=== PATIENT | female | born 1930 | race Asian ===

== ENCOUNTER 2018-09-13 11:09 | Inpatient (IN) | payer OTHER, MEDICAID ==
[~2018-09-13] VITALS: Ht 152.4 cm; Wt 53.5 kg
[2018-09-13 11:15] VITALS: BP_SYST 103
[2018-09-13] MEDS ORDERED: IPRATROPIUM/ALBUTEROL SULFATE 3 ML AMPUL.NEB (DUONEB) INH ONE (11:45)
[2018-09-13] MEDS ORDERED: IPRATROPIUM BROM 0.5 MG/2.5 ML VIAL.NEB (ATROVENT) INH ONE (11:45)
[2018-09-13 12:06] LABS: BASOPHILS % (AUTO) 0.1 % (0.0-2.0); EOSINOPHILS % (AUTO) 0.7 % (0.0-4.0); HEMATOCRIT 32.5 % (36-48); HEMOGLOBIN 10.5 g/dL (12.0-16.0); LYMPHOCYTES # (AUTO) 1.9 K/uL (1.0-5.5); MEAN CORPUSCULAR HEMOGLOBIN 29 pg (27-31); MEAN CORPUSCULAR HGB CONC 32 % (32-36); MEAN CORPUSCULAR VOLUME 91 fL (79.0-98.0); MONOCYTES # (AUTO) 0.4 K/uL (0.0-1.0); MONOCYTES % (AUTO) 8.9 % (1.7-9.3); NEUTROPHILS # (AUTO) 2.7 K/uL (1.8-7.7); NEUTROPHILS % (AUTO) 53.3 % (40.0-70.0); PLATELET COUNT (AUTO) 250 K/uL (130-430); RED BLOOD CELL COUNT(AUTO) 3.56 MIL/uL (4.2-6.2); RED CELL DISTRIBUTION WIDTH 14.7 % (9.0-15.0)
[2018-09-13 12:14] LABS: ANION GAP 6 (5-15); CHLORIDE 101 mmol/L (98-107); GLUCOSE 232 mg/dL (70-99); POTASSIUM 4.1 mmol/L (3.5-5.1); SODIUM SERUM 138 mmol/L (136-145); UREA NITROGEN, BLOOD 18 mg/dL (8-21)
[2018-09-13 12:18] LABS: INR 0.9 (0.8-1.2); PROTHROMBIN TIME 9.5 SECS (9.5-12.5)
[2018-09-13 12:20] LABS: ALANINE AMINOTRANSFERASE 15 U/L (12-78); ALBUMIN 3.1 g/dL (3.4-4.8); ASPARTATE AMINOTRANSFERASE 13 U/L (10-37); TOTAL BILIRUBIN 0.3 mg/dL (0.0-1.0)
[2018-09-13 12:39] LABS: BILIRUBIN,URINE NEGATIVE (NEGATIVE); BLOOD, URINE NEGATIVE (NEGATIVE); CLARITY/URINE SL HAZY (CLEAR); COLOR,URINE YELLOW (YELLOW); GLUCOSE,URINE NEGATIVE (NEGATIVE); KETONES,URINE TRACE (NEGATIVE); LEUKOCYTE ESTERASE ,URINE NEGATIVE (NEGATIVE); NITRITE, URINE NEGATIVE (NEGATIVE); PH,URINE 5.5 (5.0-8.0); PROTEIN URINE TRACE (NEGATIVE); UROBILINOGEN,URINE 0.2 (0.2-1.0)
[2018-09-13 12:46] LABS: BACTERIA,URINE MODERATE /HPF (None Seen); RBC,URINE 0-3 /HPF (0-3); WBC,URINE 0-3 /HPF (0-3)
[2018-09-13 12:47] LABS: MUCUS,URINE 1+ /LPF (None Seen)
[2018-09-13] MEDS ORDERED: PRAV20TA PO (12:49)
[2018-09-13] MEDS ORDERED: STA120 PO (12:49)
[2018-09-13] MEDS ORDERED: DONE10TA44 PO (12:49)
[2018-09-13] MEDS ORDERED: ALEN10TA6 PO (12:49)
[2018-09-13] MEDS ORDERED: LOSA50TA3 PO (12:49)
[2018-09-13] MEDS ORDERED: GLUXR500 PO (12:49)
[2018-09-13] MEDS ORDERED: AMLO5TAB4 PO (12:49)
[2018-09-13] MEDS ORDERED: IOHEXOL 100 ML IV ONE (13:29)
[2018-09-13 17:20] VITALS: BP_SYST 103; BP_SYST 130
[2018-09-13] MEDS ORDERED: ALBUTEROL SULFATE 0.083% 2.5 MG/3 ML VIAL.NEB INH SCH (17:45)
[2018-09-13] MEDS ORDERED: ALBUTEROL SULFATE 0.083% 2.5 MG/3 ML VIAL.NEB INH PRN ×2 (17:45→19:00)
[2018-09-13 18:12] VITALS: BP_SYST 103
[2018-09-13] MEDS ORDERED: IPRATROPIUM BROM 0.5 MG/2.5 ML VIAL.NEB (ATROVENT) INH PRN (19:00)
[2018-09-13] MEDS: ALBUTEROL SULFATE 0.083% 2.5 MG/3 ML VIAL.NEB INH SCH (19:47)
[2018-09-13] MEDS: IPRATROPIUM BROM 0.5 MG/2.5 ML VIAL.NEB (ATROVENT) INH SCH (19:47)
[2018-09-13] MEDS: cefTRIAXone 1 GM in D5W 50 ML IV SCH (19:52)
[2018-09-13 20:00] VITALS: BP_SYST 142
[2018-09-13] MEDS: AZITHROMYCIN 500 MG in NS 250 ML IV SCH (20:24)
[2018-09-14] VITALS (7 sets, daily range): BP systolic 113–151
[2018-09-14] MEDS: IPRATROPIUM BROM 0.5 MG/2.5 ML VIAL.NEB (ATROVENT) INH SCH ×4 (00:44→20:02)
[2018-09-14] MEDS: ALBUTEROL SULFATE 0.083% 2.5 MG/3 ML VIAL.NEB INH SCH ×4 (00:44→20:02)
[2018-09-14] MEDS ORDERED: BUDESONIDE 0.5 MG/2 ML AMPUL.NEB INH ONE (09:45)
[2018-09-14] MEDS: cefTRIAXone 1 GM in D5W 50 ML IV SCH (18:15)
[2018-09-14] MEDS: BUDESONIDE 0.5 MG/2 ML AMPUL.NEB INH SCH (20:28)
[2018-09-14] MEDS: AZITHROMYCIN 500 MG in NS 250 ML IV SCH (21:48)
[2018-09-15] MEDS: IPRATROPIUM BROM 0.5 MG/2.5 ML VIAL.NEB (ATROVENT) INH SCH ×2 (01:00→07:08)
[2018-09-15] MEDS: ALBUTEROL SULFATE 0.083% 2.5 MG/3 ML VIAL.NEB INH SCH ×2 (01:00→07:08)
[2018-09-15 02:35] VITALS: BP_SYST 138
[2018-09-15] MEDS: BUDESONIDE 0.5 MG/2 ML AMPUL.NEB INH SCH (07:08)
[2018-09-15 08:15] VITALS: BP_SYST 147
[2018-09-15 10:20] VITALS: BP_SYST 149
== END 2018-09-15 11:20 | disposition home or self-care (01) | DRG 195 ==
LOC: SED 11:09 → STU 16:47 → SMU 09-14 10:11
PROVIDERS: ADMIT Internal Medicine Hospice and Palliative Medicine; ATTEND Internal Medicine Hospice and Palliative Medicine
DX: J18.9 Pneumonia, unspecified organism (principal); J40 Bronchitis, not specified as acute or chronic; J98.01 Acute bronchospasm; F03.90 Unspecified dementia, unspecified severity, without behavioral disturbance, psychotic disturbance, mood disturbance, and anxiety; E78.5 Hyperlipidemia, unspecified; E11.9 Type 2 diabetes mellitus without complications; N18.9 Chronic kidney disease, unspecified; M48.00 Spinal stenosis, site unspecified; I12.9 Hypertensive chronic kidney disease with stage 1 through stage 4 chronic kidney disease, or unspecified chronic kidney disease; Z79.899 Other long term (current) drug therapy
CPT/HCPCS: 36415; 36600; 71045; 71275; 80053; 81000-TC; 82803-TC; 82962; 83605; 83880; 84484; 85025; 85610-TC; 85730-TC; 86710; 87040-TC; 87086; 93005; 94640; 94760; 99285; G0378; J0456; J0696; J7050; J7060; J7613; J7620; J7626; Q9967

== ENCOUNTER 2019-11-23 13:56 | Inpatient (IN) | payer OTHER, MEDICAID, SELFPAY ==
[~2019-11-23] VITALS: Ht 149.9 cm; Wt 39.9 kg
[~2019-11-23 13:56] MED LIST: ALEN10TA7 PO; AMLO5TAB4 PO; BUPIVACAINE /PF 0.5% 30 ML VIAL INJ ONE; CEFAZOLIN 2 GM IVPB PREMIX 50 ML IV ONE; DONE10TA44 PO; GLUXR500 PO; KETOROLAC TROMETHAMINE 30 MG VIAL IVP ONE; LIDOCAINE 2%, 20 ML MDV INJ ONE; LOSA50TA3 PO; LR 1,000 ML IV.SOLN IV ONE; ONDANSETRON HCL 4 MG/2 ML VIAL IVP ONE; PRAV20TA PO; PROPOFOL 200MG/ 20ML VIAL (DIPRIVAN) IV ONE; SEVOFLURANE 15 MIN GAS INH ONE; STA120 PO
[2019-11-23 14:05] VITALS: BP_SYST 110
[2019-11-23 17:01] LABS: BASOPHILS % (AUTO) 0.3 % (0.0-2.0); EOSINOPHILS # (AUTO) 0.1 K/uL (0.0-0.4); EOSINOPHILS % (AUTO) 0.5 % (0.0-4.0); HEMATOCRIT 27.2 % (36-48); HEMOGLOBIN 8.6 g/dL (12.0-16.0); LYMPHOCYTES % (AUTO) 17.2 % (20.5-51.5); MEAN CORPUSCULAR HEMOGLOBIN 29 pg (27-31); MEAN CORPUSCULAR HGB CONC 32 % (32-36); MEAN CORPUSCULAR VOLUME 90 fL (79.0-98.0); MONOCYTES # (AUTO) 0.9 K/uL (0.0-1.0); MONOCYTES % (AUTO) 8.2 % (1.7-9.3); NEUTROPHILS # (AUTO) 8.4 K/uL (1.8-7.7); NEUTROPHILS % (AUTO) 73.8 % (40.0-70.0); PLATELET COUNT (AUTO) 189 K/uL (130-430); RED BLOOD CELL COUNT(AUTO) 3.02 MIL/uL (4.2-6.2); RED CELL DISTRIBUTION WIDTH 16.6 % (9.0-15.0); WHITE BLOOD COUNT (AUTO) 11.4 K/uL (4.8-10.8)
[2019-11-23 17:25] LABS: ANION GAP 10 (5-15); CALCIUM 9.1 mg/dL (8.4-11.0); CHLORIDE 104 mmol/L (98-107); CREATININE 1.01 mg/dL (0.55-1.30); GLUCOSE 116 mg/dL (70-99); POTASSIUM 4.5 mmol/L (3.5-5.1); SODIUM SERUM 137 mmol/L (136-145); UREA NITROGEN, BLOOD 41 mg/dL (8-21)
[2019-11-23 17:29] LABS: INR 0.9 (0.8-1.2); PROTHROMBIN TIME 9.4 SECS (9.5-12.5)
[2019-11-23 17:32] LABS: ALANINE AMINOTRANSFERASE 16 U/L (12-78); ALBUMIN 2.6 g/dL (3.4-4.8); ASPARTATE AMINOTRANSFERASE 13 U/L (10-37); TOTAL BILIRUBIN 0.6 mg/dL (0.0-1.0)
[2019-11-23 20:59] VITALS: BP_SYST 110
[2019-11-23 22:27] VITALS: BP_SYST 134
[2019-11-23 22:36] LABS: BILIRUBIN,URINE NEGATIVE (NEGATIVE); BLOOD, URINE 2+ (NEGATIVE); CLARITY/URINE CLOUDY (CLEAR); COLOR,URINE YELLOW (YELLOW); GLUCOSE,URINE NEGATIVE (NEGATIVE); KETONES,URINE TRACE (NEGATIVE); LEUKOCYTE ESTERASE ,URINE 3+ (NEGATIVE); NITRITE, URINE POSITIVE (NEGATIVE); PH,URINE 8.5 (5.0-8.0); PROTEIN URINE 2+ (NEGATIVE)
[2019-11-23] MEDS: IPRATROPIUM/ALBUTEROL SULFATE 3 ML AMPUL.NEB (DUONEB) INH SCH (23:27)
[2019-11-23 23:29] LABS: BACTERIA,URINE MANY /HPF (None Seen); WBC,URINE >100 /HPF (0-3)
[2019-11-23 23:30] LABS: MUCUS,URINE None Seen /LPF (None Seen)
[2019-11-24] VITALS: BP_SYST 132
[2019-11-24] MEDS ORDERED: LORazepam 1 MG TABLET PO ONE (00:30)
[2019-11-24] MEDS ORDERED: ACETAMINOPHEN 650 MG/20.3 ML UDC PO PRN (00:45)
[2019-11-24] MEDS ORDERED: LORazepam 1 MG TABLET ONE (00:55)
[2019-11-24] MEDS: INSULIN LISPRO SLIDING SCALE 100 UNITS/ML VIAL (humaLOG) SUBCUT PRN (06:09)
[2019-11-24] MEDS: IPRATROPIUM/ALBUTEROL SULFATE 3 ML AMPUL.NEB (DUONEB) INH SCH ×3 (07:15→23:15)
[2019-11-24 07:16] LABS: BASOPHILS % (AUTO) 0.3 % (0.0-2.0); EOSINOPHILS % (AUTO) 0.4 % (0.0-4.0); HEMATOCRIT 27.3 % (36-48); HEMOGLOBIN 8.9 g/dL (12.0-16.0); LYMPHOCYTES # (AUTO) 2.1 K/uL (1.0-5.5); LYMPHOCYTES % (AUTO) 26.3 % (20.5-51.5); MEAN CORPUSCULAR HEMOGLOBIN 29 pg (27-31); MEAN CORPUSCULAR HGB CONC 33 % (32-36); MEAN CORPUSCULAR VOLUME 89 fL (79.0-98.0); MONOCYTES # (AUTO) 0.7 K/uL (0.0-1.0); MONOCYTES % (AUTO) 8.4 % (1.7-9.3); NEUTROPHILS # (AUTO) 5.3 K/uL (1.8-7.7); NEUTROPHILS % (AUTO) 64.6 % (40.0-70.0); PLATELET COUNT (AUTO) 248 K/uL (130-430); RED BLOOD CELL COUNT(AUTO) 3.07 MIL/uL (4.2-6.2); RED CELL DISTRIBUTION WIDTH 16.4 % (9.0-15.0); WHITE BLOOD COUNT (AUTO) 8.1 K/uL (4.8-10.8)
[2019-11-24 07:39] LABS: ALANINE AMINOTRANSFERASE 17 U/L (12-78); ALBUMIN 2.7 g/dL (3.4-4.8); ANION GAP 9 (5-15); ASPARTATE AMINOTRANSFERASE 15 U/L (10-37); CHLORIDE 104 mmol/L (98-107); CREATININE 0.78 mg/dL (0.55-1.30); GLUCOSE 126 mg/dL (70-99); POTASSIUM 4.1 mmol/L (3.5-5.1); SODIUM SERUM 138 mmol/L (136-145); THYROID STIMULATING HORMONE 3.41 uIu/mL (0.36-3.74); TOTAL BILIRUBIN 0.8 mg/dL (0.0-1.0); UREA NITROGEN, BLOOD 35 mg/dL (8-21)
[2019-11-24 07:54] LABS: PROTHROMBIN TIME 9.8 SECS (9.5-12.5)
[2019-11-24 08:00] VITALS: BP_SYST 126
[2019-11-24 08:35] LABS: TOTAL IRON BIND. CAPACITY 253 ug/dL (250-450)
[2019-11-24] MEDS: LORazepam 1 MG TABLET PO SCH ×2 (09:00→21:58)
[2019-11-24] MEDS: NACL 0.9% 1,000 ML IV SCH ×2 (10:16→17:23)
[2019-11-24] MEDS: cefTRIAXone 1 GM in D5W 50 ML IV SCH (10:17)
[2019-11-24 12:00] VITALS: BP_SYST 153
[2019-11-24] MEDS ORDERED: POLYMYXIN 500,000/BACIT.10,000 UNITS in NS IRR 1 L IR ONE (12:51)
[2019-11-24] MEDS ORDERED: HYDROmorphone 1 MG INJ. 1 MG/ML AMPUL IVP PRN (14:30)
[2019-11-24] MEDS ORDERED: NALOXONE HCL 0.4 MG/ML AMP (NARCAN) IVP PRN ×3 (14:30→15:00)
[2019-11-24] MEDS ORDERED: METOCLOPRAMIDE HCL 10 MG/2 ML VIAL IVP PRN (14:30)
[2019-11-24] MEDS ORDERED: MORPHINE 2 MG/ML INJ. SYRINGE IVP PRN (15:00)
[2019-11-24] MEDS ORDERED: ACETAMINOPHEN 325 MG TABLET PO PRN (15:00)
[2019-11-24] MEDS ORDERED: SENNOSIDES 8.6 MG TABLET PO PRN (15:00)
[2019-11-24] MEDS ORDERED: DIPHENHYDRAMINE HCL 25 MG CAPSULE PO PRN (15:00)
[2019-11-24] MEDS ORDERED: MILK OF MAGNESIA 30 ML UDC PO PRN (15:00)
[2019-11-24] MEDS ORDERED: ONDANSETRON HCL 4 MG/2 ML VIAL IVP PRN (15:00)
[2019-11-24] MEDS ORDERED: HYDROmorphone 1 MG INJ. 1 MG/ML AMPUL ONE (15:37)
[2019-11-24 16:00] VITALS: BP_SYST 118
[2019-11-24] MEDS: CEFAZOLIN 1 GM IVPB PREMIX 50 ML IV SCH (19:05)
[2019-11-24] MEDS: LR 1,000 ML IV SCH (19:10)
[2019-11-24 19:26] VITALS: BP_SYST 124
[2019-11-24] MEDS: DOCUSATE SODIUM 100 MG CAPSULE PO SCH (21:58)
[2019-11-24] MEDS: FERROUS SULFATE 325 MG TABLET.DR PO SCH (21:58)
[2019-11-25 00:36] VITALS: BP_SYST 115
[2019-11-25] MEDS: LR 1,000 ML IV SCH (01:00)
[2019-11-25] MEDS: CEFAZOLIN 1 GM IVPB PREMIX 50 ML IV SCH (01:24)
[2019-11-25] MEDS: NACL 0.9% 1,000 ML IV SCH ×3 (01:25→23:52)
[2019-11-25 08:00] VITALS: BP_SYST 111
[2019-11-25] MEDS: IPRATROPIUM/ALBUTEROL SULFATE 3 ML AMPUL.NEB (DUONEB) INH SCH ×3 (08:01→23:10)
[2019-11-25 08:11] LABS: FOLATE (FOLIC ACID) 18.3 ng/mL (>3.0)
[2019-11-25 08:11] LABS: ALANINE AMINOTRANSFERASE 13 U/L (12-78); ALBUMIN 2.2 g/dL (3.4-4.8); ANION GAP 11 (5-15); ASPARTATE AMINOTRANSFERASE 13 U/L (10-37); CALCIUM 7.3 mg/dL (8.4-11.0); CHLORIDE 109 mmol/L (98-107); CREATININE 0.78 mg/dL (0.55-1.30); GLUCOSE 104 mg/dL (70-99); SODIUM SERUM 141 mmol/L (136-145); TOTAL BILIRUBIN 0.5 mg/dL (0.0-1.0); UREA NITROGEN, BLOOD 29 mg/dL (8-21)
[2019-11-25 08:34] LABS: BASOPHILS % (AUTO) 0.2 % (0.0-2.0); EOSINOPHILS % (AUTO) 0.3 % (0.0-4.0); HEMATOCRIT 22.5 % (36-48); LYMPHOCYTES # (AUTO) 1.5 K/uL (1.0-5.5); LYMPHOCYTES % (AUTO) 18.9 % (20.5-51.5); MEAN CORPUSCULAR HEMOGLOBIN 29 pg (27-31); MEAN CORPUSCULAR HGB CONC 32 % (32-36); MEAN CORPUSCULAR VOLUME 90 fL (79.0-98.0); MONOCYTES # (AUTO) 0.7 K/uL (0.0-1.0); MONOCYTES % (AUTO) 8.6 % (1.7-9.3); NEUTROPHILS # (AUTO) 5.6 K/uL (1.8-7.7); PLATELET COUNT (AUTO) 259 K/uL (130-430); RED BLOOD CELL COUNT(AUTO) 2.49 MIL/uL (4.2-6.2); RED CELL DISTRIBUTION WIDTH 16.7 % (9.0-15.0); WHITE BLOOD COUNT (AUTO) 7.8 K/uL (4.8-10.8)
[2019-11-25 08:36] LABS: HEMOGLOBIN 7.3 g/dL (12.0-16.0)
[2019-11-25] MEDS: LORazepam 1 MG TABLET PO SCH ×2 (09:00→21:18)
[2019-11-25] MEDS: DOCUSATE SODIUM 100 MG CAPSULE PO SCH ×2 (09:54→21:18)
[2019-11-25] MEDS: cefTRIAXone 1 GM in D5W 50 ML IV SCH (09:54)
[2019-11-25] MEDS: FERROUS SULFATE 325 MG TABLET.DR PO SCH ×2 (09:54→21:18)
[2019-11-25] MEDS: ENOXAPARIN SODIUM 40 MG/0.4 ML SYRINGE SUBCUT SCH (09:55)
[2019-11-25] MEDS: INSULIN LISPRO SLIDING SCALE 100 UNITS/ML VIAL (humaLOG) SUBCUT PRN ×2 (12:06→21:23)
[2019-11-25 12:29] VITALS: BP_SYST 144
[2019-11-25] MEDS: ACETAMINOPHEN/CODEINE 300 MG-30 MG TABLET PO PRN (13:20)
[2019-11-25 16:00] VITALS: BP_SYST 130
[2019-11-26] VITALS (7 sets, daily range): BP systolic 105–146
[2019-11-26] MEDS: IPRATROPIUM/ALBUTEROL SULFATE 3 ML AMPUL.NEB (DUONEB) INH SCH ×3 (07:36→23:16)
[2019-11-26] MEDS: FERROUS SULFATE 325 MG TABLET.DR PO SCH ×2 (09:43→20:11)
[2019-11-26] MEDS: LORazepam 1 MG TABLET PO SCH ×2 (09:43→20:11)
[2019-11-26] MEDS: DOCUSATE SODIUM 100 MG CAPSULE PO SCH ×2 (09:44→20:11)
[2019-11-26] MEDS: ENOXAPARIN SODIUM 40 MG/0.4 ML SYRINGE SUBCUT SCH (09:45)
[2019-11-26 10:13] LABS: ANION GAP 13 (5-15); CALCIUM 7.5 mg/dL (8.4-11.0); CHLORIDE 106 mmol/L (98-107); CREATININE 0.83 mg/dL (0.55-1.30); GLUCOSE 194 mg/dL (70-99); POTASSIUM 3.8 mmol/L (3.5-5.1); SODIUM SERUM 138 mmol/L (136-145); UREA NITROGEN, BLOOD 13 mg/dL (8-21)
[2019-11-26 10:21] LABS: BASOPHILS % (AUTO) 0.4 % (0.0-2.0); EOSINOPHILS % (AUTO) 0.4 % (0.0-4.0); LYMPHOCYTES # (AUTO) 2.3 K/uL (1.0-5.5); LYMPHOCYTES % (AUTO) 22.1 % (20.5-51.5); MEAN CORPUSCULAR HEMOGLOBIN 29 pg (27-31); MEAN CORPUSCULAR HGB CONC 32 % (32-36); MEAN CORPUSCULAR VOLUME 91 fL (79.0-98.0); MONOCYTES % (AUTO) 9.3 % (1.7-9.3); NEUTROPHILS % (AUTO) 67.8 % (40.0-70.0); PLATELET COUNT (AUTO) 292 K/uL (130-430); RED BLOOD CELL COUNT(AUTO) 2.34 MIL/uL (4.2-6.2); RED CELL DISTRIBUTION WIDTH 16.5 % (9.0-15.0); WHITE BLOOD COUNT (AUTO) 10.4 K/uL (4.8-10.8)
[2019-11-26 10:32] LABS: HEMOGLOBIN 6.9 g/dL (12.0-16.0)
[2019-11-26 10:33] LABS: HEMATOCRIT 21.3 % (36-48)
[2019-11-26] MEDS: cefTRIAXone 1 GM in D5W 50 ML IV SCH (11:48)
[2019-11-26] MEDS: INSULIN LISPRO SLIDING SCALE 100 UNITS/ML VIAL (humaLOG) SUBCUT PRN ×2 (11:50→17:32)
[2019-11-26] MEDS: ACETAMINOPHEN/CODEINE 300 MG-30 MG TABLET PO PRN ×2 (14:00→23:54)
[2019-11-26] MEDS: MORPHINE 4 MG/ML INJ. SYRINGE IVP PRN (20:12)
[2019-11-27 01:08] VITALS: BP_SYST 158
[2019-11-27 01:25] VITALS: BP_SYST 150
[2019-11-27] MEDS: IPRATROPIUM/ALBUTEROL SULFATE 3 ML AMPUL.NEB (DUONEB) INH SCH ×3 (07:30→23:07)
[2019-11-27] MEDS ORDERED: OMEP20CA11 PO (07:31)
[2019-11-27] MEDS ORDERED: CELE200C PO (07:31)
[2019-11-27] MEDS ORDERED: RISACAL-D PO (07:39)
[2019-11-27] MEDS ORDERED: [UNRECOGNIZED DRUG - OTHER] PO (07:39)
[2019-11-27 08:24] VITALS: BP_SYST 166
[2019-11-27] MEDS: LORazepam 1 MG TABLET PO SCH ×2 (09:18→20:35)
[2019-11-27] MEDS: DOCUSATE SODIUM 100 MG CAPSULE PO SCH ×2 (09:18→20:35)
[2019-11-27] MEDS: FERROUS SULFATE 325 MG TABLET.DR PO SCH ×2 (09:18→20:35)
[2019-11-27] MEDS: ENOXAPARIN SODIUM 40 MG/0.4 ML SYRINGE SUBCUT SCH (09:19)
[2019-11-27] MEDS ORDERED: CARVEDILOL 3.125 MG TABLET (COREG) PO ONE (10:00)
[2019-11-27 12:13] LABS: BASOPHILS % (AUTO) 0.4 % (0.0-2.0); EOSINOPHILS % (AUTO) 0.5 % (0.0-4.0); HEMATOCRIT 27.3 % (36-48); HEMOGLOBIN 8.9 g/dL (12.0-16.0); LYMPHOCYTES # (AUTO) 2.2 K/uL (1.0-5.5); LYMPHOCYTES % (AUTO) 26.4 % (20.5-51.5); MEAN CORPUSCULAR HEMOGLOBIN 28 pg (27-31); MEAN CORPUSCULAR HGB CONC 33 % (32-36); MEAN CORPUSCULAR VOLUME 87 fL (79.0-98.0); MONOCYTES # (AUTO) 0.9 K/uL (0.0-1.0); MONOCYTES % (AUTO) 10.2 % (1.7-9.3); NEUTROPHILS # (AUTO) 5.3 K/uL (1.8-7.7); NEUTROPHILS % (AUTO) 62.5 % (40.0-70.0); PLATELET COUNT (AUTO) 309 K/uL (130-430); RED BLOOD CELL COUNT(AUTO) 3.15 MIL/uL (4.2-6.2); RED CELL DISTRIBUTION WIDTH 19.2 % (9.0-15.0); WHITE BLOOD COUNT (AUTO) 8.5 K/uL (4.8-10.8)
[2019-11-27 12:32] VITALS: BP_SYST 159
[2019-11-27] MEDS: INSULIN LISPRO SLIDING SCALE 100 UNITS/ML VIAL (humaLOG) SUBCUT PRN (13:11)
[2019-11-27] MEDS: ACETAMINOPHEN/CODEINE 300 MG-30 MG TABLET PO PRN (13:27)
[2019-11-27] MEDS: cefTRIAXone 1 GM in D5W 50 ML IV SCH (15:14)
[2019-11-27 16:10] VITALS: BP_SYST 133
[2019-11-27 20:25] VITALS: BP_SYST 145
[2019-11-27] MEDS: CARVEDILOL 3.125 MG TABLET (COREG) PO SCH (20:36)
[2019-11-28 00:43] VITALS: BP_SYST 125
[2019-11-28] MEDS: IPRATROPIUM/ALBUTEROL SULFATE 3 ML AMPUL.NEB (DUONEB) INH SCH ×2 (06:00→15:36)
[2019-11-28 08:00] VITALS: BP_SYST 124
[2019-11-28] MEDS: ENOXAPARIN SODIUM 40 MG/0.4 ML SYRINGE SUBCUT SCH (09:38)
[2019-11-28] MEDS: FERROUS SULFATE 325 MG TABLET.DR PO SCH (09:41)
[2019-11-28] MEDS: DOCUSATE SODIUM 100 MG CAPSULE PO SCH (09:41)
[2019-11-28] MEDS: CARVEDILOL 3.125 MG TABLET (COREG) PO SCH (09:41)
[2019-11-28] MEDS: cefTRIAXone 1 GM in D5W 50 ML IV SCH (09:42)
[2019-11-28] MEDS: LORazepam 1 MG TABLET PO SCH (09:42)
[2019-11-28 12:47] VITALS: BP_SYST 124
[2019-11-28] MEDS: INSULIN LISPRO SLIDING SCALE 100 UNITS/ML VIAL (humaLOG) SUBCUT PRN (15:19)
[2019-11-28] MEDS: MORPHINE 4 MG/ML INJ. SYRINGE IVP PRN (15:30)
[2019-11-28 16:53] VITALS: BP_SYST 146
[2019-11-28 16:55] VITALS: BP_SYST 120
[2019-11-28] MEDS ORDERED: CEPH-568 PO ×2 (17:36)
[2019-11-28] MEDS ORDERED: ACET1TAB25 PO (17:39)
== END 2019-11-28 22:16 | DRG 480 ==
LOC: SED 13:56 → STU 17:55
PROVIDERS: ADMIT Internal Medicine; ATTEND Internal Medicine
PROC: 0QS734Z Reposition Left Upper Femur with Internal Fixation Device, Percutaneous Approach (ICD-10-PCS; principal; 2019-11-24 13:30)
DX: S72.142A Displaced intertrochanteric fracture of left femur, initial encounter for closed fracture (principal); E43 Unspecified severe protein-calorie malnutrition; Z68.1 Body mass index [BMI] 19.9 or less, adult; M48.56XA Collapsed vertebra, not elsewhere classified, lumbar region, initial encounter for fracture; N39.0 Urinary tract infection, site not specified; I12.9 Hypertensive chronic kidney disease with stage 1 through stage 4 chronic kidney disease, or unspecified chronic kidney disease; E11.22 Type 2 diabetes mellitus with diabetic chronic kidney disease; E78.00 Pure hypercholesterolemia, unspecified; E78.5 Hyperlipidemia, unspecified; F03.90 Unspecified dementia, unspecified severity, without behavioral disturbance, psychotic disturbance, mood disturbance, and anxiety; B96.89 Other specified bacterial agents as the cause of diseases classified elsewhere; D50.0 Iron deficiency anemia secondary to blood loss (chronic); M19.90 Unspecified osteoarthritis, unspecified site; M81.0 Age-related osteoporosis without current pathological fracture; N18.9 Chronic kidney disease, unspecified; W18.39XA Other fall on same level, initial encounter; Y93.89 Activity, other specified; Y92.098 Other place in other non-institutional residence as the place of occurrence of the external cause; Y99.8 Other external cause status; Z90.49 Acquired absence of other specified parts of digestive tract; Z03.818 Encounter for observation for suspected exposure to other biological agents ruled out; Z79.899 Other long term (current) drug therapy; B96.4 Proteus (mirabilis) (morganii) as the cause of diseases classified elsewhere
CPT/HCPCS: 36415; 71045; 72131; 72192-TC; 73502; 76000; 80048; 80053; 81000-TC; 82607; 82746; 82962; 83540-TC; 83550-TC; 83880; 84443-TC; 85025; 85610-TC; 85730-TC; 86886; 86900; 86901; 86920; 87081; 87086; 87186-TC; 93005; 94640; 94760; 97110-GP; 97112-GP; 97163; 97530-GP; 99285; C1713; G0378; J0690; J0696; J1170; J1650; J1885; J2001; J2270; J2310; J2405; J2704; J3490; J7030; J7040; J7050; J7060; J7120; P9021; U0003-CS